=== PATIENT | male | born 1995 | race Hispanic/Latino ===

== ENCOUNTER 2019-05-05 13:27 | Inpatient (IN) | payer OTHER, SELFPAY ==
[~2019-05-05] VITALS: Ht 170.2 cm; Wt 43.6 kg
[2019-05-05] MEDS ORDERED: ONDANSETRON HCL 4 MG/2 ML VIAL ONE (15:32)
[2019-05-05] MEDS ORDERED: SODIUM CHLORIDE 0.9% 1000ML 1,000 ML IV ONE ×2 (15:32→17:06)
[2019-05-05 15:34] LABS: BASOPHILS % (AUTO) 0.7 % (0.0-5.0); EOSINOPHILS % (AUTO) 1.5 % (0.0-8.0); HEMATOCRIT 27.7 % (42-54); LYMPHOCYTES % (AUTO) 21.7 % (21.0-51.0); MEAN CORPUSCULAR HEMOGLOBIN 21.4 pg (27.0-33.0); MEAN CORPUSCULAR VOLUME 71.4 fL (79-99); MONOCYTES % (AUTO) 2.3 % (3.0-13.0); NEUTROPHILS % (AUTO) 73.3 % (40.0-77.0); PLATELET COUNT (AUTO) 346 K/uL (130-400); RED BLOOD CELL COUNT(AUTO) 3.88 MIL/uL (4.50-6.20); RED CELL DISTRIBUTION WIDTH 16.4 % (11.0-15.5); WHITE BLOOD COUNT (AUTO) 6.1 K/uL (4.8-10.8)
[2019-05-05 15:52] LABS: INR 1.6 (0.85-1.15); PARTIAL THROMBOPLASTIN TIME 32.4 SEC (26.3-35.5); PROTHROMBIN TIME 16.5 SEC (9.6-11.6)
[2019-05-05 15:55] LABS: ALBUMIN 2.1 g/dL (3.5-5.0); BILIRUBIN,TOTAL 0.3 mg/dL (0.2-1.0); CREATININE 0.8 mg/dL (0.5-1.5)
[2019-05-05 15:58] LABS: POTASSIUM 2.5 mmol/L (3.5-5.1)
[2019-05-05] MEDS ORDERED: IOHEXOL-350 75 ML VIAL IV ONE (16:09)
[2019-05-05] MEDS ORDERED: POTASSIUM CHLORIDE 20MEQ/100ML 100 ML IV ONE ×2 (16:22→20:05)
[2019-05-05] MEDS ORDERED: LIDOCAINE HCL-MPF 1% 2ML VIAL ONE (16:26)
[2019-05-05] MEDS ORDERED: MAGNESIUM 2GM PREMIX 50ML 50 ML IV ONE (16:53)
[2019-05-05 18:17] LABS: APPEARANCE,URINE Clear (CLEAR); BILIRUBIN,URINE Negative (NEGATIVE); COLOR,URINE Yellow (YELLOW); GLUCOSE, URINE (UA) Negative (NEGATIVE); KETONES,URINE Negative (NEGATIVE); LEUKOCYTE ESTERASE ,URINE Negative (NEGATIVE); NITRATE,URINE Negative (NEGATIVE); OCCULT BLOOD,URINE Negative (NEGATIVE); PROTEIN,URINE POS 1+ mg/dL (NEGATIVE); UROBILINOGEN,URINE 0.2 mg/dL (0.2-1.0)
[2019-05-05] MEDS ORDERED: ONDANSETRON HCL 4 MG/2 ML VIAL IVP PRN (18:30)
[2019-05-05 18:56] LABS: BACTERIA,URINE Few /HPF (None Seen); RBC,URINE None Seen /HPF (0-1)
[2019-05-05 19:15] LABS: AMPHET/METH SCREEN,URINE NEGATIVE (NEGATIVE); BARBITURATE SCREEN, URINE NEGATIVE (NEGATIVE); BENZODIAZEPINES SCREEN,URINE NEGATIVE (NEGATIVE); CANNABINOID SCREEN,URINE NEGATIVE (NEGATIVE); COCAINE SCREEN,URINE NEGATIVE (NEGATIVE); OPIATE SCREEN,URINE NEGATIVE (NEGATIVE); PHENCYCLIDINE SCREEN,URINE NEGATIVE (NEGATIVE)
[2019-05-05] MEDS ORDERED: 1/2 NORMAL SALINE 1,000 ML IV ONE (20:05)
[2019-05-05] MEDS ORDERED: LIDOCAINE HCL 1% 20 ML VIAL ONE (20:06)
[2019-05-05 21:36] LABS: ALBUMIN 2.1 g/dL (3.5-5.0); BILIRUBIN,DIRECT 0.1 mg/dL (0.0-0.3); BILIRUBIN,TOTAL 0.3 mg/dL (0.2-1.0); THYROID STIMULATING HORMONE 3.27 uIU/mL (0.36-3.74)
[2019-05-05 21:45] VITALS: BP 105/58
[2019-05-05] MEDS: 1/2 NORMAL SALINE + 20 MEQ KCL 1,000 ML IV SCH (21:57)
[2019-05-05] MEDS: METRONIDAZOLE 500MG/100ML BAG 100 ML IV SCH (21:57)
[2019-05-05 23:54] VITALS: BP 107/56
[2019-05-06] MEDS: DEXTROSE 5 % AND 0.9 % NACL 1,000 ML IV SCH ×2 (03:00→16:38)
[2019-05-06 04:00] VITALS: BP 101/50
[2019-05-06] MEDS: 1/2 NORMAL SALINE + 20 MEQ KCL 1,000 ML IV SCH ×2 (04:30→14:47)
[2019-05-06] MEDS: METRONIDAZOLE 500MG/100ML BAG 100 ML IV SCH ×3 (05:44→21:29)
[2019-05-06] MEDS ORDERED: MAGNESIUM 2GM PREMIX 50ML 50 ML IV PRN (05:45)
[2019-05-06 06:04] LABS: BASOPHILS % (AUTO) 0.7 % (0.0-5.0); EOSINOPHILS % (AUTO) 0.9 % (0.0-8.0); HEMATOCRIT 25.4 % (42-54); MEAN CORPUSCULAR HEMOGLOBIN 21.4 pg (27.0-33.0); MEAN CORPUSCULAR HGB CONC 30.3 g/dL (32.0-36.0); MEAN CORPUSCULAR VOLUME 70.6 fL (79-99); MONOCYTES % (AUTO) 2.2 % (3.0-13.0); NEUTROPHILS % (AUTO) 82.7 % (40.0-77.0); PLATELET COUNT (AUTO) 358 K/uL (130-400); RED CELL DISTRIBUTION WIDTH 16.4 % (11.0-15.5); WHITE BLOOD COUNT (AUTO) 8.2 K/uL (4.8-10.8)
[2019-05-06 06:21] LABS: CREATININE 0.7 mg/dL (0.5-1.5)
[2019-05-06 06:24] LABS: POTASSIUM 2.8 mmol/L (3.5-5.1)
[2019-05-06 08:00] VITALS: BP 103/52
[2019-05-06] MEDS ORDERED: PEG 3350/NA SULF,BICARB,CL/KCL 4000 ML SOLN PO SCH (10:30)
[2019-05-06 10:41] LABS: CRP QUANTITATIVE 39.8 mg/L (0.00-9.0)
[2019-05-06 11:33] LABS: % IRON SATURATION 3.4 % (30-44)
[2019-05-06 12:00] VITALS: BP 104/54
--- NOTE | 2019-05-06 12:42 | NUR ---
oliverio note met with patient and mother. pt resides at home with mother, recently came from [place] where he was working. but came home with his mother . due to weakness and health issues. mother assists him as needed due to his weakness. but he is able to do his own adls and self- care. not working at this time. dcplan is back [place] same home setting [place]. provided them with list of low income clinics in the area, and provided number to [employer]. for possible medicaid, or erasto assist, also recommended [facility] as an option. mother states they were trying to work on that. dc plan is back home [place]. Addendum: 05/06/19 at 1246 by TIMOTHY VUONG CM Amended: Links added.
[2019-05-06] MEDS: POTASSIUM CHLORIDE 10MEQ/100ML 100 ML IV PRN ×2 (12:49→21:29)
[2019-05-06] MEDS: LIDOCAINE HCL-MPF 1% 2ML VIAL IV PRN ×2 (12:50→21:29)
[2019-05-06] MEDS ORDERED: DICYCLOMINE HCL 10 MG/5 ML ML PO SCH (14:00)
[2019-05-06] MEDS ORDERED: LIDOCAINE HCL-MPF 1% 2ML VIAL IV PRN (15:15)
[2019-05-06] MEDS ORDERED: POTASSIUM CHLORIDE 20MEQ/100ML 100 ML IV PRN (15:15)
--- NOTE | 2019-05-06 15:38 | NUR ---
Nutrition Intervention: Nutrition consult due to 40# wt. loss. Pt. reports has lost 40#(29% of UBW) due to chronic diarrhea x 5 months. Pt's diet order changed to Clear Liquid diet. Pt. was on GI Soft [place] diet for breakfast- pt. stated tolerated diet well. Spoke with pt. regarding nutritional supplementation and pt. agreed to try. Labs reviewed(Alb 2.1, BG 63, K 2.8). LBM: 05/06/2019, loose as per pt. SR-20, loose. Recommendations: 1) Rec. advance diet as tolerated to GI Soft [place]. 2) Rec. Ensure Clear supp. TID with meals for added kcal/protein. 3) Continue to monitor pt's nutritional status and diet advancement. 4) Consult RD as nutrition concerns arise. Addendum: 05/06/19 at [address] Amended: Links added.
[2019-05-06 16:00] VITALS: BP 124/68
[2019-05-06] MEDS: LEVOFLOXACIN 500 MG/D5W 100 ML 100 ML IV SCH (16:38)
[2019-05-06 21:14] VITALS: BP 109/70
[2019-05-06] MEDS: FAMOTIDINE/PF 20 MG/2 ML VIAL IV SCH (21:30)
[2019-05-07] VITALS (15 sets, daily range): BP systolic 91–116; BP diastolic 45–68
[2019-05-07] MEDS: LIDOCAINE HCL-MPF 1% 2ML VIAL IV PRN (05:18)
[2019-05-07] MEDS: POTASSIUM CHLORIDE 10MEQ/100ML 100 ML IV PRN (05:18)
[2019-05-07] MEDS: METRONIDAZOLE 500MG/100ML BAG 100 ML IV SCH ×3 (05:19→21:56)
[2019-05-07 06:34] LABS: BASOPHILS % (AUTO) 0.6 % (0.0-5.0); EOSINOPHILS % (AUTO) 1.1 % (0.0-8.0); HEMATOCRIT 21.2 % (42-54); LYMPHOCYTES % (AUTO) 17.2 % (21.0-51.0); MEAN CORPUSCULAR HEMOGLOBIN 21.4 pg (27.0-33.0); MEAN CORPUSCULAR HGB CONC 30.7 g/dL (32.0-36.0); MEAN CORPUSCULAR VOLUME 69.7 fL (79-99); MONOCYTES % (AUTO) 3.4 % (3.0-13.0); NEUTROPHILS % (AUTO) 77.2 % (40.0-77.0); PLATELET COUNT (AUTO) 315 K/uL (130-400); RED BLOOD CELL COUNT(AUTO) 3.04 MIL/uL (4.50-6.20); RED CELL DISTRIBUTION WIDTH 16.2 % (11.0-15.5); WHITE BLOOD COUNT (AUTO) 6.5 K/uL (4.8-10.8)
[2019-05-07 06:44] LABS: INR 1.7 (0.85-1.15); PARTIAL THROMBOPLASTIN TIME 34.3 SEC (26.3-35.5); PROTHROMBIN TIME 17.5 SEC (9.6-11.6)
[2019-05-07 06:47] LABS: % IRON SATURATION 5.3 % (30-44)
[2019-05-07 06:54] LABS: ALBUMIN 1.7 g/dL (3.5-5.0); BILIRUBIN,TOTAL 0.3 mg/dL (0.2-1.0); CREATININE 0.8 mg/dL (0.5-1.5); TOTAL PROTEIN, SERUM 4.8 g/dL (6.0-8.3)
[2019-05-07 06:56] LABS: POTASSIUM 2.8 mmol/L (3.5-5.1)
--- NOTE | 2019-05-07 06:57 | NUR ---
HOSPITALIST PAGED FOR CRITICAL LEVELS
--- NOTE | 2019-05-07 07:11 | NUR ---
PT JEHOVA'S WITNESS REFUSING BLOOD TRANSFUSION HOUSE SITTER IZABEL AWARE NO NEW ORDERS CONTINUE W PLANNED PROCEDURE F OR TODAY
[2019-05-07] MEDS: DEXTROSE 5 % AND 0.9 % NACL 1,000 ML IV SCH (07:54)
[2019-05-07] MEDS ORDERED: LIDOCAINE HCL 1% 20 ML VIAL ONE (09:03)
[2019-05-07] MEDS ORDERED: PROPOFOL 10 MG/ML 20ML VIAL IV ONE (09:03)
[2019-05-07] MEDS ORDERED: EPHEDRINE SULFATE 50 MG/ML AMPULE ONE (09:28)
[2019-05-07] MEDS: FAMOTIDINE/PF 20 MG/2 ML VIAL IV SCH ×2 (10:47→20:25)
[2019-05-07] MEDS: M.V.I. IV [ADULT] 10 ML, FOLIC ACID 1 MG, THIAMINE HCL 100 MG in SODIUM CHLORIDE 0.9% 1... IV SCH (10:47)
[2019-05-07] MEDS: IRON SUCROSE COMPLEX 100 MG in SODIUM CHLORIDE 0.9% 50 ML IV SCH (10:47)
[2019-05-07] MEDS: LEVOFLOXACIN 500 MG/D5W 100 ML 100 ML IV SCH (14:39)
--- NOTE | 2019-05-07 20:00 | NUR ---
potassium received pt receivng k+ replacement thru iv,kolby well.
[2019-05-08 03:18] VITALS: BP 98/52
--- NOTE | 2019-05-08 04:50 | NUR ---
NPO Pt is Npo after midnight for upper GI series.
[2019-05-08 05:21] LABS: BASOPHILS % (AUTO) 0.5 % (0.0-5.0); EOSINOPHILS % (AUTO) 0.8 % (0.0-8.0); LYMPHOCYTES % (AUTO) 18.8 % (21.0-51.0); MEAN CORPUSCULAR HEMOGLOBIN 20.9 pg (27.0-33.0); MONOCYTES % (AUTO) 2.9 % (3.0-13.0); NEUTROPHILS % (AUTO) 76.4 % (40.0-77.0); PLATELET COUNT (AUTO) 281 K/uL (130-400); RED BLOOD CELL COUNT(AUTO) 2.68 MIL/uL (4.50-6.20); RED CELL DISTRIBUTION WIDTH 16.5 % (11.0-15.5); WHITE BLOOD COUNT (AUTO) 6.6 K/uL (4.8-10.8)
[2019-05-08] MEDS: METRONIDAZOLE 500MG/100ML BAG 100 ML IV SCH ×3 (05:22→21:33)
[2019-05-08 05:36] LABS: HEMATOCRIT 19.3 % (42-54)
[2019-05-08 05:39] LABS: ALBUMIN 1.5 g/dL (3.5-5.0); BILIRUBIN,TOTAL 0.4 mg/dL (0.2-1.0); CREATININE 0.6 mg/dL (0.5-1.5); POTASSIUM 3.1 mmol/L (3.5-5.1); TOTAL PROTEIN, SERUM 4.4 g/dL (6.0-8.3)
[2019-05-08] MEDS: LIDOCAINE HCL-MPF 1% 2ML VIAL IV PRN ×2 (06:20→13:13)
[2019-05-08] MEDS: POTASSIUM CHLORIDE 10MEQ/100ML 100 ML IV PRN ×2 (06:21→13:12)
--- NOTE | 2019-05-08 06:55 | NUR ---
CRITICAL LAB Critical labs were called to [facility].Pt states he's Jehova's Witness and can't receive blood transfusion.
--- NOTE | 2019-05-08 06:56 | NUR ---
K+ K+ 3.1,potassium protocol initiated.
[2019-05-08 07:30] VITALS: BP 96/49
[2019-05-08] MEDS ORDERED: IRON SUCROSE COMPLEX 100 MG in SODIUM CHLORIDE 0.9% 50 ML IV SCH (09:00)
[2019-05-08] MEDS: FAMOTIDINE/PF 20 MG/2 ML VIAL IV SCH ×2 (09:26→20:07)
--- NOTE | 2019-05-08 11:24 | NUR ---
RD FOLLOW UP Pt NPO at time of screen, pending upper GI series as per EMR. 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 Repeat consultation received, however appropriate GI nutrition education to be determined. RD to follow up with appropriate GI education, high Iron nutrition education, malnutrition education. Recommend to consider altered means of nutrition secondary to low BMI (15.1), severe wt loss (-40lbs), not tolerating PO foods since admit. Pt LBM 05/07/19, Pt continues with Diarrhea. Pt monitored labs: Hgb 5.6, Hct 19.3, K 3.1, Ca 7.2, ALT 10, Alb 1.5. RD to follow up. Addendum: 05/08/19 at [address] Amended: Links added.
--- NOTE | 2019-05-08 12:30 | NUR ---
MEGAN Arias MADE ROUNDS ON PATIENT . LABS REVIEWED.VÍCTOR CONTINUES ON IRON INFUSIONS Addendum: 05/08/19 at 1844 by SIVA ZAPATA RN RN MEGAN Arias MADE ROUNDS ON PATIENT . LABS REVIEWED BY [employer] ARCHITECT INCLUDING HGB OF 5.6 AND HCT 19.3. PATIENT CONTINUES ON IRON INFUSIONS AND BANANA BAG . NO NEW ORDERS GIVEN AT THIS TIME .
[2019-05-08] MEDS ORDERED: DIATR MEGLU/DIATRIZOATE SODIUM 30 ML BOTTLE ONE (12:48)
[2019-05-08] MEDS: IRON SUCROSE COMPLEX 100 MG in SODIUM CHLORIDE 0.9% 50 ML IV SCH (13:13)
[2019-05-08] MEDS: M.V.I. IV [ADULT] 10 ML, FOLIC ACID 1 MG, THIAMINE HCL 100 MG in SODIUM CHLORIDE 0.9% 1... IV SCH (13:13)
--- NOTE | 2019-05-08 14:40 | NUR ---
PATIENT IN GI SERIES AT THIS TIME
[2019-05-08 16:00] VITALS: BP 95/56
[2019-05-08] MEDS: LEVOFLOXACIN 500 MG/D5W 100 ML 100 ML IV SCH (17:55)
[2019-05-08] MEDS ORDERED: MAG HYDROX/AL HYDROX/SIMETH ES 30 ML SUSP UDCUP PO ONE (18:30)
[2019-05-08 19:35] VITALS: BP 113/64
--- NOTE | 2019-05-08 20:11 | NUR ---
MD Dr JOSE talking to pt privately,mother stepped out as per order. Addendum: 05/08/19 at 2012 by DENICE CARPENTER RN RN Amended: Links added.
--- NOTE | 2019-05-08 20:51 | NUR ---
CONSENT Pt agreed to have blood transfusion,mother at bedside.Informed consent signed per pt as explained per Dr alexis.Called lab to draw type and screen.
[2019-05-08] MEDS ORDERED: POTASSIUM CHLORIDE 20MEQ/100ML 100 ML IV PRN (21:15)
[2019-05-08] MEDS ORDERED: LIDOCAINE HCL-MPF 1% 2ML VIAL IV PRN (21:15)
[2019-05-08] MEDS ORDERED: ACETAMINOPHEN 325 MG TAB PO SCH (21:30)
[2019-05-08] MEDS ORDERED: LORATADINE 10 MG TABLET PO SCH (21:30)
[2019-05-08] MEDS ORDERED: EPOETIN ALFA 10,000 UNIT/ML VIAL SQ SCH (21:30)
--- NOTE | 2019-05-08 21:44 | NUR ---
BLOOD BANK Called blood bank spoke to Krystyna,they're still working on the blood.
[2019-05-08] MEDS: POTASSIUM CHLORIDE 10% ELIXIR 20 MEQ/15 ML UDCUP PO PRN (22:55)
[2019-05-08 23:13] VITALS: BP 108/72
[2019-05-09] MEDS: POTASSIUM CHLORIDE 10% ELIXIR 20 MEQ/15 ML UDCUP PO PRN (01:22)
--- NOTE | 2019-05-09 01:30 | NUR ---
PIV New iv started to his left arm,kolby well.Old Piv's dcd pt.c/o they hurt.Iv sites no redness,no swelling.
--- NOTE | 2019-05-09 02:56 | NUR ---
2ND UNIT PRBC Pt on his 2nd bag of prbc,kolby well.
[2019-05-09 03:30] VITALS: BP 110/58
[2019-05-09 06:07] LABS: BASOPHILS % (AUTO) 0.5 % (0.0-5.0); EOSINOPHILS % (AUTO) 1.5 % (0.0-8.0); HEMATOCRIT 30.5 % (42-54); LYMPHOCYTES % (AUTO) 31.5 % (21.0-51.0); MEAN CORPUSCULAR HEMOGLOBIN 23.8 pg (27.0-33.0); MEAN CORPUSCULAR HGB CONC 31.5 g/dL (32.0-36.0); MEAN CORPUSCULAR VOLUME 75.7 fL (79-99); MONOCYTES % (AUTO) 3.7 % (3.0-13.0); NEUTROPHILS % (AUTO) 62.3 % (40.0-77.0); PLATELET COUNT (AUTO) 281 K/uL (130-400); RED BLOOD CELL COUNT(AUTO) 4.03 MIL/uL (4.50-6.20); RED CELL DISTRIBUTION WIDTH 17.4 % (11.0-15.5); WHITE BLOOD COUNT (AUTO) 5.9 K/uL (4.8-10.8)
[2019-05-09] MEDS: METRONIDAZOLE 500MG/100ML BAG 100 ML IV SCH ×3 (06:07→21:24)
--- NOTE | 2019-05-09 06:21 | NUR ---
STATUS Pt awake,alert,denies pain or discomfort.He states he feels much better.
[2019-05-09 06:35] LABS: ALBUMIN 1.8 g/dL (3.5-5.0); BILIRUBIN,TOTAL 0.9 mg/dL (0.2-1.0); CREATININE 0.6 mg/dL (0.5-1.5); POTASSIUM 3.8 mmol/L (3.5-5.1); TOTAL PROTEIN, SERUM 4.8 g/dL (6.0-8.3)
[2019-05-09 07:30] VITALS: BP 101/53
[2019-05-09] MEDS: FAMOTIDINE/PF 20 MG/2 ML VIAL IV SCH ×2 (09:21→21:24)
[2019-05-09 11:00] VITALS: BP 97/57
[2019-05-09] MEDS ORDERED: COMPOUND IV MISC 1 EACH IVSOLN MISC PRN (12:15)
[2019-05-09] MEDS ORDERED: COMPOUND IV REFRIGERATED 1 EACH IVSOLN MISC PRN (14:00)
[2019-05-09 14:10] LABS: HEPATITIS Bs ANTIGEN SCREEN P Negative (Negative)
[2019-05-09 16:00] VITALS: BP 102/58
[2019-05-09] MEDS: LEVOFLOXACIN 500 MG/D5W 100 ML 100 ML IV SCH (16:53)
--- NOTE | 2019-05-09 18:20 | NUR ---
dr tuttle came to see patient
[2019-05-09] MEDS: M.V.I. IV [ADULT] 10 ML, FOLIC ACID 1 MG, THIAMINE HCL 100 MG in SODIUM CHLORIDE 0.9% 1... IV SCH (18:34)
[2019-05-09 19:40] VITALS: BP 103/63
--- NOTE | 2019-05-09 21:41 | NUR ---
SEROLOGY Refaxed order to [phone]-Lab for T Whipplei,spoke to
[2019-05-10] VITALS (7 sets, daily range): BP systolic 105–114; BP diastolic 57–71
[2019-05-10] MEDS: METRONIDAZOLE 500MG/100ML BAG 100 ML IV SCH ×2 (06:09→14:00)
[2019-05-10 06:21] LABS: BASOPHILS % (AUTO) 0.2 % (0.0-5.0); EOSINOPHILS % (AUTO) 1.5 % (0.0-8.0); HEMATOCRIT 32.1 % (42-54); LYMPHOCYTES % (AUTO) 22.8 % (21.0-51.0); MEAN CORPUSCULAR HGB CONC 31.2 g/dL (32.0-36.0); MONOCYTES % (AUTO) 2.6 % (3.0-13.0); NEUTROPHILS % (AUTO) 72.3 % (40.0-77.0); PLATELET COUNT (AUTO) 313 K/uL (130-400); RED BLOOD CELL COUNT(AUTO) 4.17 MIL/uL (4.50-6.20); RED CELL DISTRIBUTION WIDTH 17.8 % (11.0-15.5); WHITE BLOOD COUNT (AUTO) 8.5 K/uL (4.8-10.8)
[2019-05-10 06:33] LABS: ALBUMIN 1.6 g/dL (3.5-5.0); BILIRUBIN,TOTAL 0.5 mg/dL (0.2-1.0); CREATININE 0.6 mg/dL (0.5-1.5); CRP QUANTITATIVE 30.4 mg/L (0.00-9.0); POTASSIUM 3.2 mmol/L (3.5-5.1); TOTAL PROTEIN, SERUM 4.7 g/dL (6.0-8.3)
[2019-05-10] MEDS: POTASSIUM CHLORIDE 20 MEQ ERTAB PO PRN ×2 (06:39→09:49)
[2019-05-10 08:19] LABS: ERYTHROCYTE SEDIMENTATION RATE 5 MM/HR (0-15)
[2019-05-10] MEDS: FAMOTIDINE/PF 20 MG/2 ML VIAL IV SCH ×2 (09:49→21:59)
[2019-05-10] MEDS: M.V.I. IV [ADULT] 10 ML, FOLIC ACID 1 MG, THIAMINE HCL 100 MG in SODIUM CHLORIDE 0.9% 1... IV SCH (09:55)
[2019-05-10] MEDS: IRON SUCROSE COMPLEX 100 MG in SODIUM CHLORIDE 0.9% 50 ML IV SCH (09:55)
--- NOTE | 2019-05-10 11:02 | NUR ---
LAB JULIO SPOKE TO MARK FROM LAB STATED EBENHIPPMATA SEROLOGY TEST NOT DONE HERE AND CANNOT BE ORDERED.
--- NOTE | 2019-05-10 11:45 | NUR ---
DR MEJIA STATED PT CANNOT GO HOME AND NEEDS IV ABX. STATED SHE WILL CALL BACK IN A COUPLE OF HOURS REGARDING BX RESULTS
--- NOTE | 2019-05-10 16:23 | NUR ---
NUTRITION EDUCATION Upon visit, RD attempt at Ulcerative/celiac/IBS Nutrition education. 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 RD provided Malnutrition education as Pt has lost 40lbs over the course of 5mos. Pt is now able to tolerate foods. Looking forward to treatment and weight gain. Addendum: 05/10/19 at [address] Amended: Links added.
[2019-05-10] MEDS: CEFTRIAXONE SODIUM 2 GM VIAL IVP SCH (16:30)
[2019-05-10] MEDS: LEVOFLOXACIN 500 MG/D5W 100 ML 100 ML IV SCH (16:30)
--- NOTE | 2019-05-10 16:32 | NUR ---
RD FOLLOW UP Pt newly diagnosed with T. Whipple disease. RD provided nutrition recommendations for Malnutrition. Recommend to add Ensure TID, 30mls Promod TID with meals. Pt LBM 05/09/19. Pt monitored labs: Hgb10.0, K 3.2, Ca 7.5, Crp 30.40, Alb 1.6. RD to continue to monitor. Please notify RD as additional nutrition concerns arise. Thank you. Addendum: 05/10/19 at [address] RD Amended: Links added.
--- NOTE | 2019-05-10 16:47 | NUR ---
DR HYMAN ROUNDED TO SEE PT. STATED PT CAME BACK POSITIVE VIA PATHOLOGY RESULTS FOR WHIPPLES DISEASE. STATED REFER PT TO DR VARGAS (INFECTIOUS DISEASE) PT MAY NEED 2 WEEK ABX THERAPY FOLLOWED BY 1 YEAR OF PO ABX. PT VERBALIZED UDNERSTANDING
[2019-05-11 03:43] VITALS: BP 113/59
[2019-05-11 05:50] LABS: BASOPHILS % (AUTO) 0.2 % (0.0-5.0); EOSINOPHILS % (AUTO) 1.1 % (0.0-8.0); HEMATOCRIT 31.6 % (42-54); LYMPHOCYTES % (AUTO) 14.7 % (21.0-51.0); MEAN CORPUSCULAR HGB CONC 30.7 g/dL (32.0-36.0); MEAN CORPUSCULAR VOLUME 78.2 fL (79-99); MONOCYTES % (AUTO) 2.5 % (3.0-13.0); NEUTROPHILS % (AUTO) 80.9 % (40.0-77.0); PLATELET COUNT (AUTO) 299 K/uL (130-400); RED BLOOD CELL COUNT(AUTO) 4.04 MIL/uL (4.50-6.20); RED CELL DISTRIBUTION WIDTH 19.1 % (11.0-15.5); WHITE BLOOD COUNT (AUTO) 11.7 K/uL (4.8-10.8)
[2019-05-11 06:12] LABS: ALBUMIN 1.7 g/dL (3.5-5.0); BILIRUBIN,TOTAL 0.2 mg/dL (0.2-1.0); CREATININE 0.7 mg/dL (0.5-1.5); POTASSIUM 3.5 mmol/L (3.5-5.1); TOTAL PROTEIN, SERUM 4.8 g/dL (6.0-8.3)
[2019-05-11] MEDS: POTASSIUM CHLORIDE 20 MEQ ERTAB PO PRN (06:24)
[2019-05-11 08:10] VITALS: BP 92/51
[2019-05-11] MEDS: IRON SUCROSE COMPLEX 100 MG in SODIUM CHLORIDE 0.9% 50 ML IV SCH (10:34)
[2019-05-11] MEDS: FAMOTIDINE/PF 20 MG/2 ML VIAL IV SCH ×2 (10:34→21:53)
[2019-05-11 11:30] VITALS: BP 103/57
[2019-05-11] MEDS: CEFTRIAXONE SODIUM 2 GM VIAL IVP SCH (15:00)
[2019-05-11 16:42] VITALS: BP 108/58
--- NOTE | 2019-05-11 18:12 | NUR ---
CHART REVIEWED, PLAN OF CARE DISCUSSED W RN. EXPECT 2 WKS IV ABX + 1 YEAR ORAL WILL DISCUSS W CM DIRECTOR
[2019-05-11 19:21] VITALS: BP 118/64
[2019-05-11 23:28] VITALS: BP 105/59
[2019-05-12 03:47] VITALS: BP 113/63
[2019-05-12 04:39] LABS: BASOPHILS % (AUTO) 0.3 % (0.0-5.0); EOSINOPHILS % (AUTO) 2.1 % (0.0-8.0); HEMATOCRIT 29.6 % (42-54); LYMPHOCYTES % (AUTO) 21.3 % (21.0-51.0); MEAN CORPUSCULAR HEMOGLOBIN 24.4 pg (27.0-33.0); MEAN CORPUSCULAR HGB CONC 30.7 g/dL (32.0-36.0); MEAN CORPUSCULAR VOLUME 79.4 fL (79-99); MONOCYTES % (AUTO) 2.5 % (3.0-13.0); NEUTROPHILS % (AUTO) 73.1 % (40.0-77.0); PLATELET COUNT (AUTO) 259 K/uL (130-400); RED BLOOD CELL COUNT(AUTO) 3.73 MIL/uL (4.50-6.20); RED CELL DISTRIBUTION WIDTH 20.4 % (11.0-15.5); WHITE BLOOD COUNT (AUTO) 6.7 K/uL (4.8-10.8)
[2019-05-12 05:18] LABS: ALBUMIN 1.6 g/dL (3.5-5.0); BILIRUBIN,TOTAL 0.2 mg/dL (0.2-1.0); CREATININE 0.5 mg/dL (0.5-1.5); POTASSIUM 4.4 mmol/L (3.5-5.1); TOTAL PROTEIN, SERUM 4.9 g/dL (6.0-8.3)
[2019-05-12 08:19] VITALS: BP 109/64
--- NOTE | 2019-05-12 09:00 | NUR ---
PATIENT UP AND AMBULATING AND TOLERATING ACTIVITY WELL. SALINE LOCK WNL AND FLUSHES WELL.
[2019-05-12] MEDS: FAMOTIDINE/PF 20 MG/2 ML VIAL IV SCH ×2 (09:57→22:27)
[2019-05-12] MEDS: IRON SUCROSE COMPLEX 100 MG in SODIUM CHLORIDE 0.9% 50 ML IV SCH (09:58)
[2019-05-12 11:54] VITALS: BP 110/55
[2019-05-12] MEDS: CEFTRIAXONE SODIUM 2 GM VIAL IVP SCH (15:00)
--- NOTE | 2019-05-12 15:00 | NUR ---
ROCEPHINE 2GM GIVEN AND INFUSED WELL AND WAS FLUSHED WITH NS AFTERWARDS.
[2019-05-12 15:39] LABS: INR 1.14 (0.85-1.15); PROTHROMBIN TIME 11.9 SEC (9.6-11.6)
[2019-05-12 16:58] VITALS: BP 102/51
[2019-05-12 19:00] VITALS: BP 114/58
[2019-05-12 23:50] VITALS: BP 108/56
[2019-05-13 03:08] VITALS: BP 116/67
[2019-05-13 05:24] LABS: BASOPHILS % (AUTO) 0.5 % (0.0-5.0); LYMPHOCYTES % (AUTO) 18.8 % (21.0-51.0); MEAN CORPUSCULAR HEMOGLOBIN 24.2 pg (27.0-33.0); MEAN CORPUSCULAR HGB CONC 30.6 g/dL (32.0-36.0); MEAN CORPUSCULAR VOLUME 78.9 fL (79-99); MONOCYTES % (AUTO) 6.4 % (3.0-13.0); NEUTROPHILS % (AUTO) 69.7 % (40.0-77.0); PLATELET COUNT (AUTO) 293 K/uL (130-400); RED BLOOD CELL COUNT(AUTO) 3.93 MIL/uL (4.50-6.20); RED CELL DISTRIBUTION WIDTH 21.6 % (11.0-15.5); WHITE BLOOD COUNT (AUTO) 8.3 K/uL (4.8-10.8)
[2019-05-13 05:44] LABS: CREATININE 0.6 mg/dL (0.5-1.5); POTASSIUM 4.5 mmol/L (3.5-5.1)
[2019-05-13 08:00] VITALS: BP 108/74
[2019-05-13] MEDS: IRON SUCROSE COMPLEX 100 MG in SODIUM CHLORIDE 0.9% 50 ML IV SCH (09:27)
[2019-05-13] MEDS: FAMOTIDINE/PF 20 MG/2 ML VIAL IV SCH ×2 (09:27→20:18)
[2019-05-13 12:00] VITALS: BP 105/56
[2019-05-13 16:00] VITALS: BP 100/57
[2019-05-13] MEDS: CEFTRIAXONE SODIUM 2 GM VIAL IVP SCH (16:15)
[2019-05-13 19:20] VITALS: BP 105/54
[2019-05-14 00:02] VITALS: BP 113/62
[2019-05-14 03:30] VITALS: BP 116/56
[2019-05-14 06:07] LABS: BASOPHILS % (AUTO) 0.9 % (0.0-5.0); EOSINOPHILS % (AUTO) 2.6 % (0.0-8.0); HEMATOCRIT 33.4 % (42-54); LYMPHOCYTES % (AUTO) 25.9 % (21.0-51.0); MEAN CORPUSCULAR HEMOGLOBIN 24.6 pg (27.0-33.0); MEAN CORPUSCULAR HGB CONC 30.5 g/dL (32.0-36.0); MEAN CORPUSCULAR VOLUME 80.5 fL (79-99); MONOCYTES % (AUTO) 5.1 % (3.0-13.0); PLATELET COUNT (AUTO) 352 K/uL (130-400); RED BLOOD CELL COUNT(AUTO) 4.15 MIL/uL (4.50-6.20); RED CELL DISTRIBUTION WIDTH 22.7 % (11.0-15.5); WHITE BLOOD COUNT (AUTO) 10.7 K/uL (4.8-10.8)
[2019-05-14 06:22] LABS: CREATININE 0.6 mg/dL (0.5-1.5); POTASSIUM 4.5 mmol/L (3.5-5.1)
[2019-05-14 08:00] VITALS: BP 115/63
[2019-05-14] MEDS: FAMOTIDINE/PF 20 MG/2 ML VIAL IV SCH ×2 (09:29→20:28)
[2019-05-14] MEDS: IRON SUCROSE COMPLEX 100 MG in SODIUM CHLORIDE 0.9% 50 ML IV SCH (09:29)
[2019-05-14 11:20] VITALS: BP 104/58
[2019-05-14 16:00] VITALS: BP 108/60
[2019-05-14] MEDS: CEFTRIAXONE SODIUM 2 GM VIAL IVP SCH (16:01)
[2019-05-14 19:35] VITALS: BP 117/67
[2019-05-15] VITALS (7 sets, daily range): BP systolic 110–124; BP diastolic 54–67
[2019-05-15 05:44] LABS: BASOPHILS % (AUTO) 0.9 % (0.0-5.0); HEMATOCRIT 30.8 % (42-54); LYMPHOCYTES % (AUTO) 28.8 % (21.0-51.0); MEAN CORPUSCULAR HEMOGLOBIN 24.9 pg (27.0-33.0); MEAN CORPUSCULAR HGB CONC 30.5 g/dL (32.0-36.0); MEAN CORPUSCULAR VOLUME 81.5 fL (79-99); NEUTROPHILS % (AUTO) 60.9 % (40.0-77.0); PLATELET COUNT (AUTO) 327 K/uL (130-400); RED BLOOD CELL COUNT(AUTO) 3.78 MIL/uL (4.50-6.20); RED CELL DISTRIBUTION WIDTH 23.6 % (11.0-15.5)
[2019-05-15 06:03] LABS: CREATININE 0.6 mg/dL (0.5-1.5); POTASSIUM 4.5 mmol/L (3.5-5.1)
[2019-05-15] MEDS: IRON SUCROSE COMPLEX 100 MG in SODIUM CHLORIDE 0.9% 50 ML IV SCH (08:42)
[2019-05-15] MEDS: FAMOTIDINE/PF 20 MG/2 ML VIAL IV SCH ×2 (08:42→20:29)
[2019-05-15] MEDS: CEFTRIAXONE SODIUM 2 GM VIAL IVP SCH (15:38)
--- NOTE | 2019-05-15 16:00 | NUR ---
DISCHARGE PLAN TO GO TO [facility] FOR IV ABX X 11 MORE DOSES. PICC LINE TO BE PLACED TODAY Addendum: 05/15/19 at 1829 by DURGA LOCKHART RN CM Amended: Links added.
[2019-05-16 04:18] VITALS: BP 118/65
[2019-05-16 08:00] VITALS: BP 123/68
[2019-05-16] MEDS: FAMOTIDINE/PF 20 MG/2 ML VIAL IV SCH (09:00)
[2019-05-16] MEDS: IRON SUCROSE COMPLEX 100 MG in SODIUM CHLORIDE 0.9% 50 ML IV SCH (09:30)
[2019-05-16 11:41] VITALS: BP 125/79
[2019-05-16] MEDS ORDERED: FERR325T22 PO (12:18)
[2019-05-16] MEDS: CEFTRIAXONE SODIUM 2 GM VIAL IVP SCH (13:24)
== END 2019-05-16 13:30 | disposition home or self-care (01) | DRG 393 ==
LOC: EDH 13:27 → EDHIP 13:28 → OBSVTOIN 13:28 → 4DH 20:27
PROVIDERS: ADMIT Family Medicine; ATTEND Family Medicine
PROC: 0DB98ZX Excision of Duodenum, Via Natural or Artificial Opening Endoscopic, Diagnostic (ICD-10-PCS; 2019-05-07)
PROC: 0DB68ZX Excision of Stomach, Via Natural or Artificial Opening Endoscopic, Diagnostic (ICD-10-PCS; 2019-05-07)
PROC: 0DB48ZX Excision of Esophagogastric Junction, Via Natural or Artificial Opening Endoscopic, Diagnostic (ICD-10-PCS; 2019-05-07)
PROC: 0DBB8ZX Excision of Ileum, Via Natural or Artificial Opening Endoscopic, Diagnostic (ICD-10-PCS; 2019-05-07)
PROC: 0DBL8ZX Excision of Transverse Colon, Via Natural or Artificial Opening Endoscopic, Diagnostic (ICD-10-PCS; 2019-05-07)
PROC: 0DBP8ZX Excision of Rectum, Via Natural or Artificial Opening Endoscopic, Diagnostic (ICD-10-PCS; 2019-05-07)
PROC: 0DBF8ZX Excision of Right Large Intestine, Via Natural or Artificial Opening Endoscopic, Diagnostic (ICD-10-PCS; 2019-05-07)
PROC: 0DBG8ZX Excision of Left Large Intestine, Via Natural or Artificial Opening Endoscopic, Diagnostic (ICD-10-PCS; 2019-05-07)
PROC: 30233N1 Transfusion of Nonautologous Red Blood Cells into Peripheral Vein, Percutaneous Approach (ICD-10-PCS; principal; 2019-05-08)
DX: K90.81 Whipple's disease (principal); E43 Unspecified severe protein-calorie malnutrition; K63.3 Ulcer of intestine; D62 Acute posthemorrhagic anemia; R64 Cachexia; Z68.1 Body mass index [BMI] 19.9 or less, adult; E87.6 Hypokalemia; K52.9 Noninfective gastroenteritis and colitis, unspecified; E83.42 Hypomagnesemia; K22.8 Other specified diseases of esophagus; K31.89 Other diseases of stomach and duodenum; K63.89 Other specified diseases of intestine
CPT/HCPCS: 36415; 36430; 43239; 45380; 74177; 74245; 80048; 80053; 80076; 80190; 80305; 81001; 82270; 82306; 82550; 82607; 82728; 82746; 82784; 83516; 83540; 83550; 83615; 83690; 83735; 83993; 84132; 84145; 84443; 84446; 84484; 84590; 84597; 85025; 85610; 85651; 85730; 86140; 86701; 86704; 86706; 86717; 86850; 86900; 86901; 86922; 87177; 87324; 87340; 87350; 87390; 87507; 87520; 88305; 88312; 93005; C1894; G0378; J0696; J0885; J1756; J1956; J2405; J2704; J3411; J3475; J3480; J3490; J7030; J7042; P9016; Q9963; Q9967